=== PATIENT | female | born 1930 | race Asian ===

== ENCOUNTER 2017-06-23 22:49 | Inpatient (IN) | payer OTHER ==
[~2017-06-23] VITALS: Ht 162.6 cm; Wt 85.7 kg
[2017-06-23] MEDS ORDERED: TYLENOL EXTRA500 MG ORAL ×2 (22:51→22:59)
[2017-06-23] MEDS ORDERED: METOPROLOL TART25 MG ORAL (22:59)
[2017-06-23] MEDS ORDERED: DULCOLAX10 MG RC (22:59)
[2017-06-23] MEDS ORDERED: NORCO 5-325 TA1 EAC1 ORAL (22:59)
[2017-06-23] MEDS ORDERED: DOCUSATE SODIU100 MG ORAL (22:59)
[2017-06-23] MEDS ORDERED: FLEET ENEMA133 ML RECTAL (22:59)
[2017-06-23] MEDS ORDERED: GABAPENTIN300 MG ORAL (22:59)
[2017-06-23] MEDS ORDERED: DULERA 100 MCG/13 GM INH (22:59)
[2017-06-23] MEDS ORDERED: DIPHENHYDRAMINE25 M1 ORAL (22:59)
[2017-06-23] MEDS ORDERED: ALBUTEROL SULF8.5 GM INH (22:59)
[2017-06-23] MEDS ORDERED: Acetaminophen 500mg (ES) tab ORAL ONE (23:15)
[2017-06-23] MEDS ORDERED: cefTRIAXone 1 GM in NS 55 ML IVPB ONE (23:15)
[2017-06-23] MEDS ORDERED: Vancomycin 1.5gm/D5W 250ml 250 ML IVPB ONE (23:15)
[2017-06-23 23:23] LABS: BASOPHILS % (AUTO) 0.8 % (0.0-2.0); EOSINOPHILS % (AUTO) 3.4 % (0.0-3.0); LYMPHOCYTES % (AUTO) 25.8 % (20.0-45.0); MEAN CORPUSCULAR HEMOGLOBIN 27.1 PG (27.0-31.0); MEAN CORPUSCULAR HGB CONC 32.1 G/DL (32.0-36.0); MEAN CORPUSCULAR VOLUME 85 FL (80-99); MEAN PLATELET VOLUME 4.8 FL (6.5-10.1); MONOCYTES % (AUTO) 8.8 % (1.0-10.0); NEUTROPHILS % (AUTO) 61.1 % (45.0-75.0); PLATELET COUNT 381 K/UL (150-450); RED BLOOD COUNT 4.47 M/UL (4.20-5.40); WHITE BLOOD COUNT 8.2 K/UL (4.8-10.8)
[2017-06-23 23:32] LABS: ANION GAP 8 mmol/L (5-15); CALCIUM 9.2 MG/DL (8.5-10.1); CARBON DIOXIDE 27 MMOL/L (21-32); CHLORIDE 99 MMOL/L (98-107); CREATININE 0.7 MG/DL (0.55-1.30); POTASSIUM 4.5 MMOL/L (3.5-5.1); SODIUM 134 MMOL/L (136-145)
[2017-06-23 23:38] LABS: INR 0.9 (0.9-1.1); PROTHROMBIN TIME 9.8 SEC (9.30-11.50)
[2017-06-23 23:40] VITALS: BP 136/68
[2017-06-23 23:43] LABS: KETONES,URINE NEGATIVE (NEGATIVE); LEUKOCYTE ESTERASE ,URINE 3+ (NEGATIVE); NITRITE,URINE NEGATIVE (NEGATIVE); PH,URINE 6 (4.5-8.0); PROTEIN,URINE NEGATIVE (NEGATIVE); UROBILINOGEN,URINE 1 MG/DL (0.0-1.0)
[2017-06-23 23:44] LABS: ALANINE AMINOTRANSFERASE 19 U/L (12-78); ALBUMIN/GLOBULIN RATIO 0.4 (1.0-2.7); ASPARTATE AMINO TRANSFERASE 22 U/L (15-37); CKMB < 0.5 NG/ML (0.0-3.6); TOTAL PROTEIN 8.8 G/DL (6.4-8.2)
--- NOTE | 2017-06-23 23:44 | Emergency Room Report ---
History of Present Illness General Chief Complaint: Pain Source: Patient, Medical Record, EMS Present Illness HPI This is an 87-year-old [place] female coming [facility]. She presents with chief complaint of fever and right arm swelling and redness. Onset acutely today. Temperature at the jail., Was given. No trauma. No chest pain. No nausea vomiting or diarrhea. No urinary complaint. At baseline she is short of breath and on oxygen. Allergies: Coded Allergies: No Known Allergies (Unverified , 06/23/17) Patient History Past Medical History: see triage record, old chart reviewed Past Surgical History: other Pertinent Family History: none Social History: Denies: smoking Last Menstrual Period: none Now: No Immunizations: other Reviewed Nursing Documentation: PMH: Agreed, PSxH: Agreed Nursing Documentation-PMH Hx Hypertension: Yes Review of Systems Constitutional: Reports: fever Eye: Denies: eye pain, blurred vision ENT: Denies: ear pain, nose congestion, throat swelling Respiratory: Denies: cough, shortness of breath Cardiovascular: Denies: chest pain, palpitations Gastrointestinal: Denies: abdominal pain, diarrhea, nausea, vomiting Musculoskeletal: Reports: joint swelling, muscle stiffness, Denies: back pain, joint pain Skin: Denies: rash Neurological: Denies: headache, numbness Endocrine: Denies: increased thirst, increased urine Hematologic/Lymphatic: Denies: easy bruising All Other Systems: negative except mentioned in HPI Physical Exam Vital Signs Date Time Temp Pulse Resp B/P (MAP) Pulse Ox O2 Delivery O2 Flow Rate FiO2 06/23/17 22:36 98.8 90 22 169/90 98 Nasal Cannula 2.0 vitals with high blood pressure. Repeat rectal temperature is 100.5. Sp02 EP Interpretation: reviewed, normal, abnormal General Appearance: well appearing, alert, mild distress, obese Head: normocephalic, atraumatic Eyes: bilateral eye PERRL, bilateral eye EOMI ENT: hearing grossly normal, normal pharynx Neck: full range of motion, supple, no meningismus Respiratory: chest non-tender, rhonchi Cardiovascular #1: regular rate, rhythm, no murmur Gastrointestinal: normal bowel sounds, non tender, no mass, no organomegaly, no bruit, non-distended Musculoskeletal: back normal, normal range of motion, other - Right upper extremity with edema and erythema to the low bicep antecubital area. Sensation normal. Movement of the arm and elbow elicit pain. Neurologic: alert Psychiatric: mood/affect normal Skin: warm/dry Medical Decision Making Diagnostic Impression: Primary Impression: Sepsis Qualified Codes: A41.9 - Sepsis, unspecified organism Additional Impressions: Right arm cellulitis UTI (urinary tract infection) Qualified Codes: N30.00 - Acute cystitis without hematuria ER Course Patient presents with a cellulitis and sepsis. Antibiotic started. Also has a urinary tract infection. Ultrasound negative for DVT. She probably had a thrombophlebitis recent admission or hospitalization. No evidence of necrotizing fasciitis. Laboratory Tests Test 06/23/17 22:55 06/23/17 23:26 White Blood Count 8.2 K/UL (4.8-10.8) Red Blood Count 4.47 M/UL (4.20-5.40) Hemoglobin 12.1 G/DL (12.0-16.0) Hematocrit 37.8 % (37.0-47.0) Mean Corpuscular Volume 85 FL (80-99) Mean Corpuscular Hemoglobin 27.1 PG (27.0-31.0) Mean Corpuscular Hemoglobin Concent 32.1 G/DL (32.0-36.0) Red Cell Distribution Width 15.0 % (11.6-14.8) H Platelet Count 381 K/UL (150-450) Mean Platelet Volume 4.8 FL (6.5-10.1) L Neutrophils (%) (Auto) 61.1 % (45.0-75.0) Lymphocytes (%) (Auto) 25.8 % (20.0-45.0) Monocytes (%) (Auto) 8.8 % (1.0-10.0) Eosinophils (%) (Auto) 3.4 % (0.0-3.0) H Basophils (%) (Auto) 0.8 % (0.0-2.0) Prothrombin Time 9.8 SEC (9.30-11.50) Prothromb Time International Ratio 0.9 (0.9-1.1) Activated Partial Thromboplast Time 29 SEC (23-33) Sodium Level 134 MMOL/L (136-145) L Potassium Level 4.5 MMOL/L (3.5-5.1) Chloride Level 99 MMOL/L (98-107) Carbon Dioxide Level 27 MMOL/L (21-32) Anion Gap 8 mmol/L (5-15) Blood Urea Nitrogen 18 mg/dL (7-18) Creatinine 0.7 MG/DL (0.55-1.30) Estimat Glomerular Filtration Rate mL/min (>60) Glucose Level 135 MG/DL (74-106) H Lactic Acid Level 1.70 mmol/L (0.66-2.22) Calcium Level 9.2 MG/DL (8.5-10.1) Total Bilirubin 0.3 MG/DL (0.2-1.0) Aspartate Amino Transf (AST/SGOT) 22 U/L (15-37) Alanine Aminotransferase (ALT/SGPT) 19 U/L (12-78) Alkaline Phosphatase 149 U/L (46-116) H Total Creatine Kinase 19 U/L (26-308) L Creatine Kinase MB < 0.5 NG/ML (0.0-3.6) Creatine Kinase MB Relative Index 2.6 Troponin I 0.001 ng/mL (0.000-0.056) Total Protein 8.8 G/DL (6.4-8.2) H Albumin 2.5 G/DL (3.4-5.0) L Globulin 6.3 g/dL Albumin/Globulin Ratio 0.4 (1.0-2.7) L Urine Color Yellow Urine Appearance Cloudy Urine pH 6 (4.5-8.0) Urine Specific [place] 1.010 (1.005-1.035) Urine Protein Negative (NEGATIVE) Urine Glucose (UA) Negative (NEGATIVE) Urine Ketones Negative (NEGATIVE) Urine Occult Blood 3+ (NEGATIVE) H Urine Nitrite Negative (NEGATIVE) Urine Bilirubin Negative (NEGATIVE) Urine Urobilinogen 1 MG/DL (0.0-1.0) H Urine Leukocyte Esterase 3+ (NEGATIVE) H Urine RBC 5-10 /HPF (0 - 2) H Urine WBC 60-80 /HPF (0 - 2) H Urine Squamous Epithelial Cells Many /LPF (NONE/OCC) H Urine Bacteria Moderate /HPF (NONE) H Lab Results Impression labs unremarkable. EKG Diagnostic Results Rate: normal Rhythm: NSR ST Segments: no acute changes Rhythm Strip Diag. Results Rhythm Strip Time: 23:43 EP Interpretation: yes Rate: 85 Rhythm: NSR, no PVC's Chest X-Ray Diagnostic Results Chest X-Ray Diagnostic Results : Chest X-Ray Ordered: Yes # of Views/Limited/Complete: 1 View Indication: Shortness of Breath EP Interpretation: Yes Interpretation: no consolidation, no effusion, no pneumothorax, no acute cardiopulmonary disease, other - constrast in stomach Impression: No acute disease Electronically Signed by: Pancho Alvarado MD Last Vital Signs Date Time Temp Pulse Resp B/P (MAP) Pulse Ox O2 Delivery O2 Flow Rate FiO2 06/23/17 22:36 98.8 90 22 169/90 98 Nasal Cannula 2.0 Status: improved Disposition: ADMITTED INPATIENT Condition: Serious Referrals: NON PHYSICIAN (PCP) PANCHO ALVARADO M.D. Jun 23, 2017 23:44
[2017-06-23 23:52] LABS: APPEARANCE,URINE CLOUDY; BACTERIA,URINE MODERATE /HPF; SQUAMOUS EPITHELIAL CELL,UR MANY /LPF (NONE/OCC); WBC,URINE 60-80 /HPF (0 - 2)
[2017-06-24] VITALS (7 sets, daily range): BP systolic 134–161; BP diastolic 58–99
[2017-06-24] MEDS ORDERED: MOM30 ML ORAL (05:26)
[2017-06-24] MEDS ORDERED: DIOVAN80 MG ORAL (05:26)
[2017-06-24] MEDS ORDERED: VITAMIN C500 M1 ORAL (05:26)
[2017-06-24] MEDS ORDERED: Acetaminophen 500mg (ES) tab ORAL PRN (05:45)
[2017-06-24] MEDS ORDERED: Norco 5mg/325mg tab ORAL PRN (05:45)
[2017-06-24] MEDS ORDERED: Albuterol/Ipratropium 3ml neb HHN PRN (05:45)
[2017-06-24] MEDS: Sodium Chloride 500ML 550 ML IV SCH ×3 (06:08→16:00)
[2017-06-24] MEDS ORDERED: Cefepime 1gm vial ONE (06:27)
[2017-06-24] MEDS: Cefepime HCl 1 GM in D5W 55 ML IVPB SCH ×2 (06:30→17:14)
[2017-06-24] MEDS: Metoprolol Tartrate 12.5mg TAB ORAL SCH ×2 (08:21→20:53)
[2017-06-24] MEDS: Docusate 100mg cap ORAL SCH ×2 (08:21→08:38)
[2017-06-24] MEDS ORDERED: NS 500ML ONE (10:55)
[2017-06-24] MEDS ORDERED: Tubing IV Secondary IV ONE (10:55)
--- NOTE | 2017-06-24 13:48 | Wound Care Consultation ---
Wound Assessment Wound Assessment : Wound Number: 1 Wound Present on Admission: Yes New Wound: No Status Change of Wound: No Wound Location Body Site Modif: left, right, lower Wound Location Body Site: leg - hemosiderin staining Wound Type: other - hemosiderin staining Prabhu Test: Does not Prabhu Percent of Wound Black/Brown: 100 Wound Drainage Amount: None Wound Drainage Odor: None/Absent Tissue Surrounding Wound: Intact Wound General Appearance: Asymptomatic Wound Comment #1 Hemosiderin staining on both lower legs Recommendation -Apply A&D ointment on both feet -Optimize nutrition -Low air loss SPR mattress -Heel protector on both heels -Offload both heels -Keep clean and dry -Turn and reposition -Assess and f/u accordingly for any changes SHO PINEDA RN Jun 24, 2017 13:48
--- NOTE | 2017-06-24 14:27 | Diagnostic Imaging Report ---
Indication: Shortness of breath Technique: One view of the chest Comparison: none Findings: Lungs and pleural spaces are clear. Heart size is borderline enlarged. Aorta is tortuous and calcified. There is evidence of prior upper lumbar vertebral augmentation procedure. Impression: No acute process
[2017-06-24] MEDS: Albuterol/Ipratropium 3ml neb HHN SCH (20:45)
[2017-06-24] MEDS: Heparin 5000 units/ml inj SUBQ SCH (20:54)
[2017-06-25] VITALS: BP 146/68
[2017-06-25] MEDS: Albuterol/Ipratropium 3ml neb HHN SCH ×7 (00:04→23:28)
[2017-06-25] MEDS: Vancomycin 1250mg/D5W 250ml IVPB SCH (00:22)
--- NOTE | 2017-06-25 01:15 | History and Physical Report ---
DATE OF ADMISSION: 06/24/2017 REASON FOR ADMISSION: Right upper extremity cellulitis. HISTORY OF PRESENT ILLNESS: This is an 87-year-old female, who is nonweightbearing and [facility] in a [facility]. She has chronic right upper extremity swelling according to records, but developed warmth and discoloration of the limb prompting her to be sent to the emergency room. A venous duplex scan was negative for DVT, but the concern over cellulitis has prompted this hospitalization. PAST MEDICAL HISTORY: Includes history of ARDS, history of congestive heart failure, bronchospastic lung disease, hypertension, nonweightbearing status, rheumatoid arthritis, status post kyphoplasty, and peripheral neuropathy. ALLERGIES: None known. FAMILY HISTORY: Noncontributory. SOCIAL HISTORY: No record of smoking, alcohol, or substance abuse. REVIEW OF SYSTEMS: Could not be obtained per the patient. PHYSICAL EXAMINATION: GENERAL: She is alert, but minimally verbal. HEENT: Oropharynx is clear. NECK: Supple and obese. LUNGS: Diminished breath sounds. Few wheezes. CARDIAC: Regular rhythm and rate. Normal S1 and S2. No murmur. ABDOMEN: Obese and soft. EXTREMITIES: Notable for significant contractures of the extremities. Right upper extremity has warmth, 2+ edema, and hyperemia. LABORATORY DATA: Reviewed. IMPRESSION: 1. Right upper extremity cellulitis. 2. Immobility. 3. Rheumatoid arthritis. 4. Moderate protein-calorie malnutrition. 5. History of congestive heart failure. 6. Paroxysmal bronchospasm. PLAN: 1. Empiric antibiotics. 2. Skin care. 3. Inhaled bronchodilators. 4. Monitor volume status and cardiorenal parameters. 5. Continue baseline cardiovascular regimen. 6. DVT prophylaxis. Adam Cifuentes M.D. DR: ENDER JOB#: [id number] CC:
[2017-06-25 04:00] VITALS: BP 126/79
[2017-06-25] MEDS: Cefepime HCl 1 GM in D5W 55 ML IVPB SCH ×2 (05:54→18:08)
[2017-06-25 08:00] VITALS: BP 134/74
[2017-06-25] MEDS: Metoprolol Tartrate 12.5mg TAB ORAL SCH ×2 (08:18→21:15)
[2017-06-25] MEDS: Docusate 100mg cap ORAL SCH (08:18)
[2017-06-25] MEDS: Heparin 5000 units/ml inj SUBQ SCH ×2 (08:28→21:00)
[2017-06-25 12:20] VITALS: BP 130/58
[2017-06-25] MEDS ORDERED: NS 500ML ONE (15:55)
[2017-06-25] MEDS ORDERED: Tubing IV Secondary IV ONE (15:55)
[2017-06-25 16:00] VITALS: BP 123/62
[2017-06-25 20:21] VITALS: BP 113/63
[2017-06-26] MEDS: Vancomycin 1250mg/D5W 250ml IVPB SCH (00:16)
[2017-06-26 00:31] VITALS: BP 123/53
--- NOTE | 2017-06-26 01:45 | Progress Note ---
DATE: 06/25/2017 INTERNAL MEDICINE PROGRESS NOTE SUBJECTIVE: The patient without new complaints. She continues on IV antibiotics. She has no distress. OBJECTIVE: VITAL SIGNS: Blood pressure 130/58, pulse 75, respirations 20, and afebrile. Monitored rhythm sinus. LUNGS: Diminished breath sounds. No wheezing. HEART: Regular rhythm and rate. Normal S1 and S2. ABDOMEN: Soft. EXTREMITIES: No edema. The right upper extremity remains erythematous, warm, and edematous. LABORATORY AND DIAGNOSTIC DATA: Blood culture one out of two bottles has gram-positive cocci. IMPRESSION: 1. Cellulitis, right upper extremity. 2. Dependent edema. 3. Rheumatoid arthritis. 4. Immobility. 5. Possible bacteremia versus contaminant. PLAN: 1. Continue IV antibiotics. 2. Skin care. 3. Assistance with all ADLs including nutrition. 4. DVT prophylaxis. 5. Infectious Diseases consultation. Adam Cifuentes M.D. DR: Stew JOB#: [id number] CC:
[2017-06-26] MEDS: Albuterol/Ipratropium 3ml neb HHN SCH ×6 (03:37→23:27)
[2017-06-26 04:00] VITALS: BP 117/60
[2017-06-26] MEDS: Cefepime HCl 1 GM in D5W 55 ML IVPB SCH ×2 (05:49→18:06)
[2017-06-26 07:33] LABS: BASOPHILS % (AUTO) 0.7 % (0.0-2.0); EOSINOPHILS % (AUTO) 7.6 % (0.0-3.0); LYMPHOCYTES % (AUTO) 14.3 % (20.0-45.0); MEAN CORPUSCULAR HGB CONC 31.3 G/DL (32.0-36.0); MEAN CORPUSCULAR VOLUME 87 FL (80-99); MEAN PLATELET VOLUME 4.9 FL (6.5-10.1); MONOCYTES % (AUTO) 9.6 % (1.0-10.0); NEUTROPHILS % (AUTO) 67.9 % (45.0-75.0); PLATELET COUNT 307 K/UL (150-450); RED BLOOD COUNT 3.79 M/UL (4.20-5.40); RED CELL DISTRIBUTION WIDTH 14.9 % (11.6-14.8); WHITE BLOOD COUNT 7.4 K/UL (4.8-10.8)
[2017-06-26 08:10] LABS: ALANINE AMINOTRANSFERASE 17 U/L (12-78); ALBUMIN/GLOBULIN RATIO 0.4 (1.0-2.7); ANION GAP 4 mmol/L (5-15); ASPARTATE AMINO TRANSFERASE 16 U/L (15-37); CALCIUM 8.9 MG/DL (8.5-10.1); CARBON DIOXIDE 28 MMOL/L (21-32); CHLORIDE 101 MMOL/L (98-107); CREATININE 0.7 MG/DL (0.55-1.30); MAGNESIUM 2.1 MG/DL (1.8-2.4); POTASSIUM 4.2 MMOL/L (3.5-5.1); SODIUM 133 MMOL/L (136-145); TOTAL PROTEIN 7.5 G/DL (6.4-8.2)
[2017-06-26 08:13] VITALS: BP 123/52
[2017-06-26] MEDS: Metoprolol Tartrate 12.5mg TAB ORAL SCH ×2 (08:50→22:51)
[2017-06-26] MEDS: Docusate 100mg cap ORAL SCH ×2 (08:51→09:12)
[2017-06-26] MEDS: Heparin 5000 units/ml inj SUBQ SCH ×2 (08:57→22:53)
[2017-06-26 11:58] VITALS: BP 131/63
[2017-06-26 15:45] VITALS: BP 119/57
[2017-06-26 20:00] VITALS: BP 115/72
--- NOTE | 2017-06-26 20:15 | Consultation ---
DATE OF CONSULTATION: 06/26/2017 INFECTIOUS DISEASES CONSULTATION CONSULTING PHYSICIAN: Misty Dias M.D. REFERRING PHYSICIAN: Adam Cifuentes M.D. REASON FOR CONSULTATION: Right arm cellulitis. HISTORY OF PRESENTING ILLNESS: This is an 87-year-old lady with history of congestive heart failure, ARDS, hypertension, rheumatoid arthritis, who came in with right arm swelling and redness. Duplex scan was negative for DVT and an Infectious Diseases consultation has been obtained for antibiotics. PAST MEDICAL HISTORY: 1. History of ARDS. 2. Congestive heart failure. 3. Hypertension. 4. Bronchospastic lung disease. 5. Rheumatoid arthritis. 6. Status post kyphoplasty. 7. Neuropathy. MEDICATIONS: As an inpatient, she is on Avapro, IV vancomycin, subcutaneous heparin, albuterol, metoprolol, docusate, gabapentin, Cefepime, Tylenol, [place]. ALLERGIES: No known drug allergies. SOCIAL HISTORY: No history of smoking, alcohol, or drug use. FAMILY HISTORY: Unknown. REVIEW OF SYSTEMS: Unable to obtain currently. PHYSICAL EXAMINATION: VITAL SIGNS: Temperature of 97.3 degrees, T-max of 97.9 degrees, pulse of 75, respiratory of 18, blood pressure 131/63, O2 saturation of 100%. HEENT: Pupils equally reactive to light and accommodation. Mouth appears clean without thrush. NECK: Supple. No adenopathy. No JVD. CARDIOVASCULAR: Regular rate and rhythm. No murmurs. LUNGS: Clear to auscultation bilaterally. No crackles. No wheezes. ABDOMEN: Soft and nontender. No organomegaly. EXTREMITIES: No cyanosis. No clubbing. Right arm edema and erythema noted with swelling. LABORATORY AND DIAGNOSTIC DATA: White count 7.4, hemoglobin 10.3, hematocrit 32.8, MCV 87, platelet count of 307, neutrophils of 67%. Sodium 133, potassium 4.2, chloride 101, bicarbonate 28, BUN 14, creatinine 0.7, glucose 111, calcium 8.9. Total bilirubin 0.3, AST 16, ALT 10, alkaline phosphatase 122. Beta-natriuretic peptide 188. Total protein 7.5 and albumin 2.1. UA is showing 60 to 80 white cells. Urine culture showing mixed gram-positive organisms. On 06/23/2017, blood culture growing coagulase-negative Staph. On 06/23/2017, nasal swab was negative for MRSA. On 06/23/2017, rectal swab was negative for VRE. Chest x-ray is showing no acute process. ASSESSMENT: 1. This is an 87-year-old lady with history of acute respiratory distress syndrome, congestive heart failure, who comes in with right arm cellulitis. 2. Urinary tract infection. 3. Hypertension. 4. Positive blood cultures with coagulase-negative Staphylococcus is likely a contaminant. PLAN: 1. Continue IV vancomycin and cefepime for now. 2. We will follow up cultures and adjust antibiotics accordingly. I would like to thank, Dr. Cifuentes, for this consultation. Misty Dias M.D. DR: Eric JOB#: [id number] CC: Adam Cifuentes M.D.
[2017-06-27] VITALS: BP 102/56
[2017-06-27] MEDS: Vancomycin 1250mg/D5W 250ml IVPB SCH
[2017-06-27] MEDS ORDERED: Vancomycin 1750mg/D5W 300ml IVPB SCH ×2 (01:00)
[2017-06-27] MEDS ORDERED: Vancomycin 1.5 GM/D5W 250ML IVPB SCH (02:00)
[2017-06-27] MEDS: Albuterol/Ipratropium 3ml neb HHN SCH ×5 (03:16→19:19)
[2017-06-27 04:00] VITALS: BP 119/59
[2017-06-27] MEDS: Cefepime HCl 1 GM in D5W 55 ML IVPB SCH ×2 (05:20→18:21)
--- NOTE | 2017-06-27 06:15 | Progress Note ---
DATE: 06/26/2017 CARDIOLOGY PROGRESS NOTE SUBJECTIVE: The patient has continued swelling and pain of the right upper extremity. No nausea or vomiting. No shortness of breath. OBJECTIVE: VITAL SIGNS: Afebrile. Blood pressure 131/63, pulse 75, and respirations 18. LUNGS: Clear. CARDIAC: Regular. No new murmur. EXTREMITIES: Right upper extremity edema and erythema noted with minimal improvement. LABORATORY DATA: Reviewed. Blood cultures with coag-negative staph, likely a contaminant. IMPRESSION: 1. Cellulitis. 2. Urinary tract infection. 3. Rheumatoid arthritis with immobility. 4. Hypertension. PLAN: 1. Continue antibiotics. 2. Skin care. 3. Follow up final cultures. 4. Pain control. Adam Cifuentes M.D. DR: HAI JOB#: [id number] CC:
[2017-06-27 08:00] VITALS: BP 118/61
[2017-06-27] MEDS: Metoprolol Tartrate 12.5mg TAB ORAL SCH ×2 (08:13→21:18)
[2017-06-27] MEDS: Heparin 5000 units/ml inj SUBQ SCH ×2 (08:21→21:31)
--- NOTE | 2017-06-27 10:56 | Infectious Diseases Prog Note ---
Assessment/Plan Assessment/Plan antibiotics : vancomycin iv, cefepime A 1. right arm cellulitis. 2. Urinary tract infection. 3. Hypertension. 4. Positive blood cultures with coagulase-negative Staphylococcus is likely a contaminant. P 1. Continue IV vancomycin and cefepime for now. 2. We will follow up cultures and adjust antibiotics accordingly. Subjective ROS Limited/Unobtainable: Yes Allergies: Coded Allergies: No Known Allergies (Unverified , 06/23/17) Objective Vital Signs Last 24 Hour Vital Signs Date Time Temp Pulse Resp B/P (MAP) Pulse Ox O2 Delivery O2 Flow Rate FiO2 06/27/17 08:13 118/61 06/27/17 08:13 77 118/61 06/27/17 08:00 76 06/27/17 08:00 98.4 77 21 118/61 97 06/27/17 07:40 76 20 98 Nasal Cannula 28 06/27/17 07:35 28 06/27/17 07:35 Nasal Cannula 2.0 28 06/27/17 07:35 96 Nasal Cannula 28 06/27/17 07:33 72 18 96 Nasal Cannula 28 06/27/17 04:00 99.2 75 18 119/59 97 Room Air 06/27/17 03:44 78 06/27/17 03:18 71 20 96 Nasal Cannula 2.0 28 06/27/17 03:17 28 06/27/17 03:17 69 20 96 Room Air 2.0 28 06/27/17 00:00 98.8 68 20 102/56 96 Nasal Cannula 2.0 06/26/17 23:38 73 06/26/17 23:29 70 20 97 Room Air 21 06/26/17 23:29 21 06/26/17 23:28 69 20 96 Room Air 21 06/26/17 22:51 68 119/57 06/26/17 20:00 98.6 80 20 115/72 95 06/26/17 20:00 98.6 80 18 115/72 95 Nasal Cannula 2.0 06/26/17 19:56 84 06/26/17 18:57 68 20 96 Room Air 1.0 06/26/17 18:56 21 06/26/17 18:55 94 Room Air 21 06/26/17 18:54 Room Air 06/26/17 18:52 66 20 94 Room Air 21 06/26/17 16:15 73 18 98 Nasal Cannula 1.0 24 06/26/17 16:04 72 18 98 Nasal Cannula 1.0 24 06/26/17 16:00 65 06/26/17 15:45 98.4 68 18 119/57 96 06/26/17 12:00 75 06/26/17 11:58 97.3 75 18 131/63 100 06/26/17 10:57 73 18 99 Nasal Cannula 1.0 24 Height (Feet): 5 Height (Inches): 4.00 Weight (Pounds): 189 Respiratory/Chest: lungs clear Cardiovascular: normal rate, regular rhythm, no gallop/murmur Abdomen: soft, non tender Extremities: other - right arm erythema, edema Laboratory Tests Test 06/26/17 23:45 Vancomycin Level Trough 7.8 ug/mL (5.0-12.0) RUDOLPH GARCIA Jun 27, 2017 10:56
[2017-06-27 12:00] VITALS: BP 112/52
[2017-06-27 16:00] VITALS: BP 124/61
[2017-06-27] MEDS ORDERED: Vancomycin 750mg/NS 250ml IVPB SCH (18:00)
[2017-06-27 20:23] VITALS: BP 105/59
[2017-06-27] MEDS: Vancomycin 750mg/NS 250ml IVPB SCH (21:19)
[2017-06-27 22:12] LABS: APPEARANCE,URINE CLEAR; KETONES,URINE NEGATIVE (NEGATIVE); LEUKOCYTE ESTERASE ,URINE NEGATIVE (NEGATIVE); NITRITE,URINE NEGATIVE (NEGATIVE); PH,URINE 7 (4.5-8.0); PROTEIN,URINE NEGATIVE (NEGATIVE); UROBILINOGEN,URINE NORMAL MG/DL (0.0-1.0)
[2017-06-27 22:18] LABS: BACTERIA,URINE OCCASIONAL /HPF; RBC,URINE 0-2 /HPF (0 - 2); SQUAMOUS EPITHELIAL CELL,UR OCCASIONAL /LPF (NONE/OCC); WBC,URINE 0-2 /HPF (0 - 2)
[2017-06-28] MEDS: Albuterol/Ipratropium 3ml neb HHN SCH ×6 (00:03→19:38)
[2017-06-28 00:37] VITALS: BP 135/66
[2017-06-28] MEDS: Solu-MEDROL 40mg Inj IVP SCH ×3 (01:31→20:58)
[2017-06-28 04:24] VITALS: BP 132/58
[2017-06-28] MEDS: Cefepime HCl 1 GM in D5W 55 ML IVPB SCH ×2 (05:52→17:41)
[2017-06-28 08:00] VITALS: BP 129/70
[2017-06-28] MEDS: Docusate 100mg cap ORAL SCH (08:37)
[2017-06-28] MEDS: Metoprolol Tartrate 12.5mg TAB ORAL SCH ×2 (08:40→20:58)
[2017-06-28] MEDS: Heparin 5000 units/ml inj SUBQ SCH ×2 (08:41→21:01)
--- NOTE | 2017-06-28 09:21 | Infectious Diseases Prog Note ---
Assessment/Plan Assessment/Plan A 1. right arm cellulitis. 2. Urinary tract infection. 3. Hypertension. 4. Positive blood cultures with coagulase-negative Staphylococcus is likely a contaminant. P 1. Continue IV vancomycin and cefepime for now. 2. We will follow up cultures and adjust antibiotics accordingly. Subjective ROS Limited/Unobtainable: No Constitutional: Reports: no symptoms Respiratory: Reports: no symptoms Gastrointestinal/Abdominal: Reports: no symptoms Allergies: Coded Allergies: No Known Allergies (Unverified , 06/23/17) Objective Vital Signs Last 24 Hour Vital Signs Date Time Temp Pulse Resp B/P (MAP) Pulse Ox O2 Delivery O2 Flow Rate FiO2 06/28/17 08:40 129/70 06/28/17 08:40 70 129/70 06/28/17 08:00 97.8 70 21 129/70 95 06/28/17 07:34 72 16 99 Nasal Cannula 2.0 28 06/28/17 07:27 Nasal Cannula 2.0 28 06/28/17 07:26 96 Nasal Cannula 2.0 28 06/28/17 07:26 77 18 96 Nasal Cannula 2.0 28 06/28/17 04:24 96.2 67 18 132/58 98 Nasal Cannula 06/28/17 04:00 Nasal Cannula 2.0 06/28/17 04:00 67 06/28/17 03:46 67 20 98 Nasal Cannula 2.0 28 06/28/17 03:36 68 20 98 Nasal Cannula 2.0 28 06/28/17 00:37 97.9 71 18 135/66 96 Nasal Cannula 06/28/17 00:12 79 20 99 Nasal Cannula 2.0 28 06/28/17 00:02 77 22 96 Nasal Cannula 2.0 28 06/28/17 00:00 73 06/28/17 00:00 Nasal Cannula 2.0 06/27/17 21:18 80 105/59 06/27/17 20:23 98.2 80 18 105/59 96 Nasal Cannula 06/27/17 20:00 84 06/27/17 20:00 Nasal Cannula 2.0 06/27/17 19:35 81 20 98 Nasal Cannula 2.0 28 06/27/17 19:19 78 22 97 Nasal Cannula 2.0 28 06/27/17 19:19 Nasal Cannula 2.0 28 06/27/17 19:19 97 Nasal Cannula 2.0 28 06/27/17 16:00 98.5 86 22 124/61 98 06/27/17 16:00 82 06/27/17 15:05 79 20 100 Nasal Cannula 2.0 28 06/27/17 14:56 77 18 98 Nasal Cannula 2.0 28 06/27/17 12:00 79 06/27/17 12:00 98.4 81 22 112/52 96 06/27/17 11:05 62 20 99 Nasal Cannula 28 06/27/17 10:58 75 20 94 Nasal Cannula 2.0 28 Height (Feet): 5 Height (Inches): 4.00 Weight (Pounds): 189 General Appearance: no acute distress HEENT: mucous membranes moist Respiratory/Chest: chest wall non-tender Cardiovascular: normal rate Abdomen: soft, non tender Extremities: other - edema of right arm, finger deformity in right hand Neurologic/Psychiatric: alert, responsive Laboratory Tests Test 06/27/17 22:00 Urine Color Pale yellow Urine Appearance Clear Urine pH 7 (4.5-8.0) Urine Specific [place] 1.005 (1.005-1.035) Urine Protein Negative (NEGATIVE) Urine Glucose (UA) Negative (NEGATIVE) Urine Ketones Negative (NEGATIVE) Urine Occult Blood 1+ (NEGATIVE) H Urine Nitrite Negative (NEGATIVE) Urine Bilirubin Negative (NEGATIVE) Urine Urobilinogen Normal MG/DL (0.0-1.0) Urine Leukocyte Esterase Negative (NEGATIVE) Urine RBC 0-2 /HPF (0 - 2) Urine WBC 0-2 /HPF (0 - 2) Urine Squamous Epithelial Cells Occasional /LPF Urine Bacteria Occasional /HPF (NONE) Current Medications Medications (Trade) Dose Ordered Sig/Sole Route PRN Reason Start Time Stop Time Status Last Admin Dose Admin Acetaminophen (Tylenol) 500 mg Q4H PRN ORAL Mild Pain/Temp > 100.5 06/24/17 05:45 07/24/17 05:44 06/25/17 16:06 Acetaminophen/ Hydrocodone Bitart ([place] 5/325) 1 tab Q4H PRN ORAL Moderate Pain (Pain Scale 4-6) 06/24/17 05:45 07/01/17 05:44 Albuterol/ Ipratropium (Albuterol/ Ipratropium) 3 ml Q4HRT HHN 06/24/17 19:00 06/29/17 18:59 06/28/17 07:25 Cefepime HCl 1 gm/ Dextrose 55 ml @ 110 mls/hr Q12H IVPB 06/24/17 06:00 07/01/17 05:59 06/28/17 05:52 Dextrose (Dextrose 50%) STAT PRN IV Hypoglycemia 06/24/17 05:45 07/24/17 05:44 Docusate Sodium (Colace) 100 mg DAILY ORAL 06/24/17 09:00 07/24/17 08:59 06/28/17 08:37 Gabapentin (Neurontin) 300 mg TID@0900,1500,2100 ORAL 06/24/17 09:00 07/24/17 08:59 06/28/17 08:36 Heparin Sodium (Porcine) (Heparin 5000 units/ml) 5,000 units EVERY 12 HOURS SUBQ 06/24/17 21:00 07/24/17 20:59 06/28/17 08:41 Irbesartan (Avapro) 150 mg DAILY ORAL 06/25/17 09:00 07/25/17 08:59 06/28/17 08:40 Methylprednisolone Sodium Succinate (Solu-MEDROL) 40 mg EVERY 12 HOURS IVP 06/28/17 00:45 07/28/17 00:44 06/28/17 08:36 Metoprolol Tartrate (Lopressor) 12.5 mg EVERY 12 HOURS ORAL 06/24/17 09:00 07/24/17 08:59 06/28/17 08:40 Vancomycin HCl (Vanco rx to dose) 1 ea DAILY PRN MISC Per rx protocol 06/24/17 05:45 07/24/17 05:44 Vancomycin/Sodium Chloride 250 ml @ 166.667 mls/hr Q12HR@0900,2100 IVPB 06/27/17 21:00 07/02/17 20:59 06/27/17 21:19 KODAK ANGELES Jun 28, 2017 09:21
[2017-06-28] MEDS: Vancomycin 750mg/NS 250ml IVPB SCH (10:16)
--- NOTE | 2017-06-28 10:21 | Diagnostic Imaging Report ---
Indication: SOB Technique: XRAY CHEST 1 V. Comparison: 06/23/2017 Findings: The cardiomediastinal silhouette is stable. There are no acute infiltrates. Impression: No acute abnormality. .
[2017-06-28 12:00] VITALS: BP 133/62
[2017-06-28 16:00] VITALS: BP 132/66
[2017-06-28 20:23] VITALS: BP 118/50
[2017-06-28] MEDS: Vancomycin 1250mg/D5W 250ml IVPB SCH (22:58)
--- NOTE | 2017-06-29 00:01 | Progress Note ---
DATE: 06/27/2017 INTERNAL MEDICINE PROGRESS NOTE SUBJECTIVE: The patient is wheezing. No chest pain. No shortness of breath. Oxygen saturation is adequate. No complaints of pain. OBJECTIVE: VITAL SIGNS: Blood pressure 105/59, pulse 80, and respirations 18. No fevers. NECK: Supple and obese. LUNGS: Diminished breath sounds and expiratory wheezes. CARDIAC: Regular. Normal S1 and S2. ABDOMEN: Soft. EXTREMITIES: Right upper extremity with slightly less edema and erythema. IMPRESSION: 1. Acute bronchospasm. 2. Right upper extremity cellulitis. 3. Rheumatoid arthritis. PLAN: 1. Intravenous steroids. 2. Check chest x-ray. 3. Inhaled bronchodilators. 4. Continue antimicrobials and skin care. Adam Cifunetes M.D. DR: ENDER JOB#: [id number] CC:
[2017-06-29 00:31] VITALS: BP 137/69
--- NOTE | 2017-06-29 00:46 | Progress Note ---
DATE: 06/28/2017 INTERNAL MEDICINE PROGRESS NOTE SUBJECTIVE: The patient has less congestion and wheezing. She is on IV steroids. Right upper extremity swelling and redness continues to improve. OBJECTIVE: VITAL SIGNS: Vitals are stable. Oxygen saturation is 96% on 2 liters. LABORATORY AND DIAGNOSTIC DATA: Chest x-ray today revealed no acute process. Labs are pending. ASSESSMENT AND PLAN: We will taper steroids as respiratory parameters improved. Continue skin care and IV antibiotics for upper extremity cellulitis. Followup laboratories and finalize care plan for return to longterm facility over the next 24 hours. Adam Cifuentes M.D. DR: Ortiz JOB#: [id number] CC:
[2017-06-29] MEDS: Albuterol/Ipratropium 3ml neb HHN SCH ×4 (01:39→11:00)
[2017-06-29 04:15] VITALS: BP 122/60
[2017-06-29] MEDS: Cefepime HCl 1 GM in D5W 55 ML IVPB SCH (06:14)
[2017-06-29 07:28] LABS: MEAN CORPUSCULAR HEMOGLOBIN 27.8 PG (27.0-31.0); MEAN CORPUSCULAR HGB CONC 32.5 G/DL (32.0-36.0); MEAN CORPUSCULAR VOLUME 86 FL (80-99); MEAN PLATELET VOLUME 4.6 FL (6.5-10.1); PLATELET COUNT 357 K/UL (150-450); RED BLOOD COUNT 3.83 M/UL (4.20-5.40); RED CELL DISTRIBUTION WIDTH 15.1 % (11.6-14.8); WHITE BLOOD COUNT 8.3 K/UL (4.8-10.8)
[2017-06-29 08:22] LABS: ALANINE AMINOTRANSFERASE 14 U/L (12-78); ALBUMIN/GLOBULIN RATIO 0.4 (1.0-2.7); ANION GAP 4 mmol/L (5-15); ASPARTATE AMINO TRANSFERASE 17 U/L (15-37); CALCIUM 8.6 MG/DL (8.5-10.1); CARBON DIOXIDE 27 MMOL/L (21-32); CHLORIDE 103 MMOL/L (98-107); CREATININE 0.8 MG/DL (0.55-1.30); SODIUM 134 MMOL/L (136-145); TOTAL PROTEIN 8.1 G/DL (6.4-8.2)
[2017-06-29] MEDS: Metoprolol Tartrate 12.5mg TAB ORAL SCH (08:25)
[2017-06-29] MEDS: Docusate 100mg cap ORAL SCH (08:26)
[2017-06-29] MEDS: Heparin 5000 units/ml inj SUBQ SCH (08:28)
[2017-06-29 08:44] VITALS: BP 126/71
[2017-06-29 08:45] LABS: ANISOCYTOSIS 1+; BAND NEUTROPHILS % (MANUAL) 0 % (0-8); BASOPHILS % (MANUAL) 0 % (0-2); EOSINOPHILS % (MANUAL) 0 % (0-3); LYMPHOCYTES % (MANUAL) 9 % (20-45); NEUTROPHILS % (MANUAL) 88 % (45-75); PLATELET ESTIMATE ADEQUATE; PLATELET MORPHOLOGY NORMAL; TOTAL CELLS COUNTED 100
[2017-06-29] MEDS ORDERED: Solu-MEDROL 40mg Inj IVP SCH (09:00)
[2017-06-29] MEDS: Vancomycin 1250mg/D5W 250ml IVPB SCH (10:37)
[2017-06-29 11:45] VITALS: BP 128/90
[2017-06-29] MEDS ORDERED: Bactrim DS (160mg/800mg) tab ORAL SCH (12:00)
--- NOTE | 2017-06-29 12:25 | Infectious Diseases Prog Note ---
Assessment/Plan Assessment/Plan A 1. right arm cellulitis. 2. Urinary tract infection. 3. Hypertension. 4. Positive blood cultures with coagulase-negative Staphylococcus is likely a contaminant. P 1. Continue IV vancomycin and cefepime for now. 2. We will follow up cultures and adjust antibiotics accordingly. Subjective ROS Limited/Unobtainable: No HEENT: Reports: no symptoms Respiratory: Reports: no symptoms Cardiovascular: Reports: no symptoms Gastrointestinal/Abdominal: Reports: no symptoms Allergies: Coded Allergies: No Known Allergies (Unverified , 06/23/17) Objective Vital Signs Last 24 Hour Vital Signs Date Time Temp Pulse Resp B/P (MAP) Pulse Ox O2 Delivery O2 Flow Rate FiO2 06/29/17 11:45 98.1 76 20 128/90 95 06/29/17 09:07 76 18 98 Nasal Cannula 1.0 24 06/29/17 08:57 76 20 98 Nasal Cannula 2.0 28 06/29/17 08:57 99 Nasal Cannula 2.0 28 06/29/17 08:57 Nasal Cannula 2.0 28 06/29/17 08:44 98.1 76 20 126/71 95 06/29/17 08:26 126/71 06/29/17 08:25 76 126/71 06/29/17 08:00 80 06/29/17 04:15 97.3 76 19 122/60 96 Nasal Cannula 06/29/17 04:08 81 18 98 Nasal Cannula 1.0 24 06/29/17 04:00 70 06/29/17 04:00 Nasal Cannula 2.0 06/29/17 03:53 81 20 98 Nasal Cannula 2.0 06/29/17 00:31 96.5 74 18 137/69 97 Nasal Cannula 06/29/17 00:10 74 18 98 Nasal Cannula 1.0 24 06/29/17 00:00 Nasal Cannula 2.0 06/29/17 00:00 72 06/29/17 00:00 75 20 98 Nasal Cannula 2.0 28 06/28/17 20:58 78 118/50 06/28/17 20:23 97.7 18 118/50 94 Nasal Cannula 06/28/17 20:00 Nasal Cannula 2.0 06/28/17 20:00 71 06/28/17 19:49 78 18 98 Nasal Cannula 1.0 24 06/28/17 19:39 Nasal Cannula 2.0 28 06/28/17 19:39 77 20 98 Nasal Cannula 1.0 24 06/28/17 19:39 98 Nasal Cannula 2.0 28 06/28/17 16:00 97.8 89 21 132/66 95 06/28/17 16:00 89 06/28/17 15:22 73 18 98 Nasal Cannula 1.0 24 06/28/17 15:14 78 20 95 Nasal Cannula 1.0 24 Height (Feet): 5 Height (Inches): 4.00 Weight (Pounds): 189 HEENT: mucous membranes moist Respiratory/Chest: lungs clear Cardiovascular: normal rate Abdomen: soft, non tender Extremities: other - edema of legs & right arm Neurologic/Psychiatric: alert, responsive Laboratory Tests Test 06/28/17 19:50 06/29/17 07:05 Vancomycin Level Trough 8.3 ug/mL (5.0-12.0) White Blood Count 8.3 K/UL (4.8-10.8) Red Blood Count 3.83 M/UL (4.20-5.40) L Hemoglobin 10.6 G/DL (12.0-16.0) L Hematocrit 32.7 % (37.0-47.0) L Mean Corpuscular Volume 86 FL (80-99) Mean Corpuscular Hemoglobin 27.8 PG (27.0-31.0) Mean Corpuscular Hemoglobin Concent 32.5 G/DL (32.0-36.0) Red Cell Distribution Width 15.1 % (11.6-14.8) H Platelet Count 357 K/UL (150-450) Mean Platelet Volume 4.6 FL (6.5-10.1) L Neutrophils (%) (Auto) % (45.0-75.0) Lymphocytes (%) (Auto) % (20.0-45.0) Monocytes (%) (Auto) % (1.0-10.0) Eosinophils (%) (Auto) % (0.0-3.0) Basophils (%) (Auto) % (0.0-2.0) Differential Total Cells Counted 100 Neutrophils % (Manual) 88 % (45-75) H Lymphocytes % (Manual) 9 % (20-45) L Monocytes % (Manual) 3 % (1-10) Eosinophils % (Manual) 0 % (0-3) Basophils % (Manual) 0 % (0-2) Band Neutrophils 0 % (0-8) Platelet Estimate Adequate Platelet Morphology Normal Anisocytosis 1+ Sodium Level 134 MMOL/L (136-145) L Potassium Level 4.0 MMOL/L (3.5-5.1) Chloride Level 103 MMOL/L (98-107) Carbon Dioxide Level 27 MMOL/L (21-32) Anion Gap 4 mmol/L (5-15) L Blood Urea Nitrogen 15 mg/dL (7-18) Creatinine 0.8 MG/DL (0.55-1.30) Estimat Glomerular Filtration Rate mL/min (>60) Glucose Level 157 MG/DL (74-106) H Calcium Level 8.6 MG/DL (8.5-10.1) Total Bilirubin 0.2 MG/DL (0.2-1.0) Aspartate Amino Transf (AST/SGOT) 17 U/L (15-37) Alanine Aminotransferase (ALT/SGPT) 14 U/L (12-78) Alkaline Phosphatase 113 U/L (46-116) Pro-B-Type Natriuretic Peptide 641 pg/mL (0-125) H Total Protein 8.1 G/DL (6.4-8.2) Albumin 2.3 G/DL (3.4-5.0) L Globulin 5.8 g/dL Albumin/Globulin Ratio 0.4 (1.0-2.7) L Current Medications Medications (Trade) Dose Ordered Sig/Osle Route PRN Reason Start Time Stop Time Status Last Admin Dose Admin Acetaminophen (Tylenol) 500 mg Q4H PRN ORAL Mild Pain/Temp > 100.5 06/24/17 05:45 07/24/17 05:44 06/25/17 16:06 Acetaminophen/ Hydrocodone Bitart ([place] 5/325) 1 tab Q4H PRN ORAL Moderate Pain (Pain Scale 4-6) 06/24/17 05:45 07/01/17 05:44 Albuterol/ Ipratropium (Albuterol/ Ipratropium) 3 ml Q4HRT HHN 06/24/17 19:00 06/29/17 18:59 06/29/17 08:56 Beclomethasone Dipropionate (Qvar 80) 1 puff BIDRT INH 06/29/17 13:00 07/29/17 12:59 Dextrose (Dextrose 50%) STAT PRN IV Hypoglycemia 06/24/17 05:45 07/24/17 05:44 Docusate Sodium (Colace) 100 mg DAILY ORAL 06/24/17 09:00 07/24/17 08:59 06/29/17 08:26 Gabapentin (Neurontin) 300 mg TID@0900,1500,2100 ORAL 06/24/17 09:00 07/24/17 08:59 06/29/17 08:25 Heparin Sodium (Porcine) (Heparin 5000 units/ml) 5,000 units EVERY 12 HOURS SUBQ 06/24/17 21:00 07/24/17 20:59 06/29/17 08:28 Irbesartan (Avapro) 150 mg DAILY ORAL 06/25/17 09:00 07/25/17 08:59 06/29/17 08:26 Metoprolol Tartrate (Lopressor) 12.5 mg EVERY 12 HOURS ORAL 06/24/17 09:00 07/24/17 08:59 06/29/17 08:25 Trimethoprim/ Sulfamethoxazole (Bactrim-DS) 1 ea TWICE A DAY ORAL 06/29/17 12:00 07/02/17 11:59 KODAK ANGELES Jun 29, 2017 12:25
[2017-06-29] MEDS ORDERED: QVAR 80mcg Inh - 8.7gm INH SCH (13:00)
[2017-06-29] MEDS ORDERED: Tubing IV Secondary IV ONE (15:17)
--- NOTE | 2017-06-30 22:16 | Discharge Summary ---
Discharge Summary Hospital Course Date of Admission Jun 24, 2017 at 00:46 Date of Discharge Jun 29, 2017 at 15:18 Admitting Diagnosis SEPSIS,RT ARM CELLULITIS [facility] Vikas Mcdaniel is a 87 year old female who was admitted on Jun 24, 2017 at 00:46 for Sepsis,Right Arm Cellulitis Hospital Course dc summary #[id number] Discharge Condition Upon Discharge: stable Discharge Disposition Patient was discharged to SNF/Subacute Facility(03) Discharge Diagnoses: Discharge Instructions Discharge Instructions Special Instructions I have been assigned to complete a D/C Summary on this account. I was not involved in the patient management Delilah Acosta NP (Vanchtein) Jun 30, 2017 22:16
--- NOTE | 2017-07-01 08:00 | Discharge Summary 2 SIG ---
DATE OF ADMISSION: 06/24/2017 DATE OF DISCHARGE: 06/29/2017 REASON FOR ADMISSION: 87-year-old female with past medical history of ARDS, congestive heart failure, bronchospastic lung disease, hypertension, nonweightbearing status, rheumatoid arthritis, status post kyphoplasty, and peripheral neuropathy, presented from the senior living facility with right upper extremity swelling and redness. The patient has a Venous duplex scan which was negative for DVT. However, there was a concern about cellulitis. The patient was admitted for right upper extremity cellulitis and possible UTI. HOSPITAL COURSE: The patient was admitted. The patient was started on empiric antibiotics. Skin care was provided. Supplemental oxygen was provided as needed to keep pulse oximetry above 92%. Pulmonary toilet with bronchodilator therapy was provided. Volume status and cardiorenal parameters were closely monitored. A baseline cardiovascular regimen was continued. DVT prophylaxis was provided. Blood culture revealed Staph coagulase-negative. ID consult was requested. Per ID, blood culture likely contaminant. Continue antibiotics for cellulitis. Urine culture revealed mixed gram-positive organism. Wound care nurse had seen the patient and advised on the skin care. Skin care was provided as per wound nurse recommendations. The patient developed acute bronchospasm and subsequently was started on IV steroids. Pulmonary toilet with bronchodilator therapy was provided. Followup chest x-ray revealed no acute abnormality. As the patient clinically improved, intravenous steroids were tapered down. Nutritional consult was requested for protein- calorie malnutrition. Per molder sweep, the patient had moderate nutritional risk. Dietary recommendation were implemented. DVT prophylaxis was provided. Patient was working with physical therapist. The patient was stable for discharge. FINAL DIAGNOSES: 1. Right upper extremity cellulitis. 2. Rheumatoid arthritis with immobility. 3. Acute bronchospasm. 4. Protein-calorie malnutrition. 5. History of congestive heart failure. 6. Hypertension. DISCHARGE MEDICATIONS: List of medication was sent to the admitting facility. DISCHARGE INSTRUCTIONS: The patient was discharged to senior living facility. Follow up with medical doctor at the facility. Adam Cifuentes M.D. I have been assigned to dictate discharge summary on this account and I was not involved in the patient's management. Delilah Acosta N.P. (Vanchtein) DR: EMMA JOB#: [id number] CC: ALEJA
--- NOTE | 2017-07-02 11:01 | Diagnostic Imaging Report ---
APPROVED REPORT CPT Code: 03362 Present Symptoms Upper Extremity Pain: Right RIGHT UPPER EXTREMITY: Venous imaging reveals patency of the internal jugular, subclavian, axillary and brachial veins. The cephalic and basilic veins are also patent. Doppler indicates normal spontaneous flow within these venous segments.
== END 2017-06-29 15:18 | DRG 383 ==
LOC: EDBD 22:49 → EMR 23:11 → 2E 06-24 00:46 → EDBEDREQ 06-24 01:55
DX: L03.113 Cellulitis of right upper limb (principal); E44.0 Moderate protein-calorie malnutrition; I50.9 Heart failure, unspecified; G62.9 Polyneuropathy, unspecified; N39.0 Urinary tract infection, site not specified; M06.9 Rheumatoid arthritis, unspecified; J98.01 Acute bronchospasm; I10 Essential (primary) hypertension
CPT/HCPCS: 36415; 71010; 80053; 80202; 81003; 82550; 82553; 83605; 83735; 83880; 84484; 85007; 85025; 85610; 85730; 87040; 87081; 87086; 87181; 93971; 94640; 94664; 94760; 99285; J7620; J8499

== ENCOUNTER 2017-08-21 20:25 | Inpatient (IN) | payer OTHER ==
[~2017-08-21] VITALS: Ht 170.2 cm; Wt 86.6 kg
[~2017-08-21 20:25] MED LIST: ALBUTEROL SULF8.5 GM INH; DIOVAN80 MG ORAL; DIPHENHYDRAMINE25 M1 ORAL; DOCUSATE SODIU100 MG ORAL; DULCOLAX10 MG RC; DULERA 100 MCG/13 GM INH; FLEET ENEMA133 ML RECTAL; GABAPENTIN300 MG ORAL; METOPROLOL TART25 MG ORAL; MOM30 ML ORAL; NORCO 5-325 TA1 EAC1 ORAL; TYLENOL EXTRA500 MG ORAL; VITAMIN C500 M1 ORAL
[2017-08-21 20:35] VITALS: BP 156/72
[2017-08-21] MEDS ORDERED: Solu-MEDROL 125mg Inj IVP ONE (21:00)
[2017-08-21 21:02] LABS: BASOPHILS % (AUTO) 1.8 % (0.0-2.0); EOSINOPHILS % (AUTO) 16.8 % (0.0-3.0); HEMATOCRIT 34.7 % (37.0-47.0); HEMOGLOBIN 11.6 G/DL (12.0-16.0); LYMPHOCYTES % (AUTO) 19.9 % (20.0-45.0); MEAN CORPUSCULAR VOLUME 87 FL (80-99); NEUTROPHILS % (AUTO) 50.6 % (45.0-75.0); PLATELET COUNT 296 K/UL (150-450); RED BLOOD COUNT 3.99 M/UL (4.20-5.40); RED CELL DISTRIBUTION WIDTH 15.8 % (11.6-14.8); WHITE BLOOD COUNT 9.2 K/UL (4.8-10.8)
[2017-08-21 21:18] LABS: ANION GAP 3 mmol/L (5-15); BLOOD UREA NITROGEN 11 mg/dL (7-18); CALCIUM 9.3 MG/DL (8.5-10.1); CARBON DIOXIDE 31 MMOL/L (21-32); CHLORIDE 92 MMOL/L (98-107); CREATININE 0.6 MG/DL (0.55-1.30); SODIUM 126 MMOL/L (136-145)
[2017-08-21] MEDS: Ipratropium 0.02% Inh Soln 2.5ml UD HHN SCH ×3 (21:25→21:59)
[2017-08-21] MEDS: Albuterol ud Inhalation HHN SCH ×3 (21:26→22:00)
[2017-08-21 21:30] LABS: ALANINE AMINOTRANSFERASE 13 U/L (12-78); ALBUMIN 2.7 G/DL (3.4-5.0); ALBUMIN/GLOBULIN RATIO 0.5 (1.0-2.7); ALKALINE PHOSPHATASE 107 U/L (46-116); ASPARTATE AMINO TRANSFERASE 21 U/L (15-37); BILIRUBIN,TOTAL 0.4 MG/DL (0.2-1.0)
--- NOTE | 2017-08-21 21:34 | Emergency Room Report ---
History of Present Illness General Chief Complaint: Dyspnea/Respdistress Source: Patient, Medical Record Present Illness HPI 87-year-old female, coming from longterm, poor historian, history of hypertension, heart failure, presenting with respiratory distress, cough. Patient is poor historian, noted to be wheezing, denies any history of asthma, but states that she was using oxygen and having a nebulizer treatment. No other history is able to be obtained. However patient is currently denying any abdominal pain chest pain Allergies: Coded Allergies: No Known Allergies (Unverified , 06/23/17) Patient History Past Medical History: see triage record Past Surgical History: none Pertinent Family History: none Now: No Reviewed Nursing Documentation: PMH: Agreed, PSxH: Agreed Nursing Documentation-PMH Hx Cardiac Problems: Yes - heart failure Hx Hypertension: Yes Hx Cancer: No Review of Systems All Other Systems: limited Physical Exam Vital Signs Date Time Temp Pulse Resp B/P (MAP) Pulse Ox O2 Delivery O2 Flow Rate FiO2 08/21/17 20:20 88 20 156/72 100 Non-Rebreather 15.0 08/21/17 21:17 21 Sp02 EP Interpretation: abnormal General Appearance: alert, mild distress, Chronically Ill Head: normocephalic, atraumatic Eyes: bilateral eye normal inspection, bilateral eye PERRL, bilateral eye EOMI ENT: normal ENT inspection, normal pharynx, normal voice, moist mucus membranes Neck: normal inspection, full range of motion, supple Respiratory: respiratory distress, speaking full sentences, wheezing Cardiovascular #1: normal inspection, regular rate, rhythm, normal capillary refill Cardiovascular #2: 2+ radial (R), 2+ radial (L) Gastrointestinal: normal inspection, non tender, soft, non-distended, no guarding Musculoskeletal: normal inspection, back normal, normal range of motion, non- tender Neurologic: other - alert, ff commands Psychiatric: other - dementia Skin: normal inspection, normal color, no rash, warm/dry, well hydrated, normal turgor Procedures Critical Care Time Critical Care Time 40 minutes of CC time 87-year-old female, respiratory distress VS: Tachypnea, hypoxic PLAN: IV access, labs, lactate, troponin, Blood/Urine Cx, Abx, IVF Anticipate admission to Tele vs. [facility] CC time also includes review of labs, review of EMR, discussion with family and paperwork from [facility], d/w hospitalist CC could include dosing of pressors, additional Abx CC time does not include procedures Medical Decision Making Diagnostic Impression: Primary Impression: Respiratory distress Additional Impressions: Wheezing Hyponatremia ER Course 87-year-old female p/w SOB DDX: Asthma exacerbation, pneumonia, upper respiratory infection/viral syndrome, ACS , CHF Plan: Labs, Combivent nebulizer treatment x 3, steroids, EKG, CXR Consider BiPAP ER Course: Patient's respiratory status has been closely monitored in the ED. Patient has been treated with combivent x 3, steroids. continues to have resp distress, placed on BIPAP Disposition: Patient will be admitted to [facility] D/W hospitalist Dr Cifuentes Please note that this Emergency Department Report was dictated using [employer] press clipping technology software, occasionally this can lead to erroneous entry secondary to interpretation by the dictation equipment. EKG Diagnostic Results EP Interpretation: Yes Rate: normal Rhythm: NSR ST Segments: T-wave inversion V2 ASA given to patient: No Rhythm Strip EP Interpretation: Yes Rate: 85 Rhythm: NSR, no PVCs, no ectopy Chest X-ray CXR: Ordered: Yes 1 view Indication: SOB EP interpretation: Yes Interpretation: Cardiomegaly, cannot fully evaluate left lung base, mild pulmonary vascular congestion Impression: Cardiomegaly Electronically signed by Chelita Kim MD Laboratory Tests Test 08/21/17 20:40 White Blood Count 9.2 K/UL (4.8-10.8) Red Blood Count 3.99 M/UL (4.20-5.40) L Hemoglobin 11.6 G/DL (12.0-16.0) L Hematocrit 34.7 % (37.0-47.0) L Mean Corpuscular Volume 87 FL (80-99) Mean Corpuscular Hemoglobin 29.1 PG (27.0-31.0) Mean Corpuscular Hemoglobin Concent 33.4 G/DL (32.0-36.0) Red Cell Distribution Width 15.8 % (11.6-14.8) H Platelet Count 296 K/UL (150-450) Mean Platelet Volume 5.7 FL (6.5-10.1) L Neutrophils (%) (Auto) 50.6 % (45.0-75.0) Lymphocytes (%) (Auto) 19.9 % (20.0-45.0) L Monocytes (%) (Auto) 11.0 % (1.0-10.0) H Eosinophils (%) (Auto) 16.8 % (0.0-3.0) H Basophils (%) (Auto) 1.8 % (0.0-2.0) Sodium Level 126 MMOL/L (136-145) L Potassium Level 5.0 MMOL/L (3.5-5.1) Chloride Level 92 MMOL/L (98-107) L Carbon Dioxide Level 31 MMOL/L (21-32) Anion Gap 3 mmol/L (5-15) L Blood Urea Nitrogen 11 mg/dL (7-18) Creatinine 0.6 MG/DL (0.55-1.30) Estimate Glomerular Filtration Rate mL/min (>60) Glucose Level 118 MG/DL (74-106) H Lactic Acid Level 0.70 mmol/L (0.66-2.22) Calcium Level 9.3 MG/DL (8.5-10.1) Total Bilirubin 0.4 MG/DL (0.2-1.0) Aspartate Amino Transferase (AST) 21 U/L (15-37) Alanine Aminotransferase (ALT) 13 U/L (12-78) Alkaline Phosphatase 107 U/L (46-116) Troponin I 0.000 ng/mL (0.000-0.056) Pro-B-Type Natriuretic Peptide 138 pg/mL (0-125) H Total Protein 8.3 G/DL (6.4-8.2) H Albumin 2.7 G/DL (3.4-5.0) L Globulin 5.6 g/dL Albumin/Globulin Ratio 0.5 (1.0-2.7) L Microbiology Date/Time Source Procedure Growth Status 08/21/17 20:51 Nasal Nares Influenza Types A,B Antigen (EDA) - Final Complete Last Vital Signs Date Time Temp Pulse Resp B/P (MAP) Pulse Ox O2 Delivery O2 Flow Rate FiO2 08/21/17 21:17 88 20 Room Air 21 08/21/17 20:20 156/72 100 15.0 Chelita Kim M.D. Aug 21, 2017 21:34
[2017-08-21 22:27] VITALS: BP 98/36
[2017-08-21 23:23] VITALS: BP 107/54
[2017-08-21] MEDS ORDERED: Milk of Magnesia 30ml Ud ORAL PRN (23:30)
[2017-08-21 23:49] LABS: APPEARANCE,URINE CLEAR; BILIRUBIN, URINE NEGATIVE (NEGATIVE); COLOR,URINE PALE YELLOW; GLUCOSE, URINE (UA) NEGATIVE (NEGATIVE); KETONES,URINE NEGATIVE (NEGATIVE); LEUKOCYTE ESTERASE ,URINE NEGATIVE (NEGATIVE); NITRITE,URINE NEGATIVE (NEGATIVE); PH,URINE 6 (4.5-8.0); PROTEIN,URINE NEGATIVE (NEGATIVE); UROBILINOGEN,URINE NORMAL MG/DL (0.0-1.0)
[2017-08-21] MEDS ORDERED: HEPARIN SO5000 UNIT2 SUBQ (23:49)
[2017-08-21] MEDS ORDERED: AVAPRO150 MG ORAL (23:49)
[2017-08-22] MEDS: Vancomycin 1.5 GM/D5W 250ML IVPB SCH (01:39)
[2017-08-22] MEDS: Albuterol/Ipratropium 3ml neb HHN SCH ×5 (03:22→20:24)
[2017-08-22 04:00] VITALS: BP 111/60
[2017-08-22 04:36] LABS: HEMATOCRIT 32.3 % (37.0-47.0); HEMOGLOBIN 10.6 G/DL (12.0-16.0); MEAN CORPUSCULAR VOLUME 88 FL (80-99); PLATELET COUNT 253 K/UL (150-450); RED BLOOD COUNT 3.66 M/UL (4.20-5.40); RED CELL DISTRIBUTION WIDTH 15.8 % (11.6-14.8); WHITE BLOOD COUNT 7.8 K/UL (4.8-10.8)
[2017-08-22 06:04] LABS: ALANINE AMINOTRANSFERASE 8 U/L (12-78); ALBUMIN 2.4 G/DL (3.4-5.0); ALBUMIN/GLOBULIN RATIO 0.5 (1.0-2.7); ALKALINE PHOSPHATASE 95 U/L (46-116); ANION GAP 2 mmol/L (5-15); ASPARTATE AMINO TRANSFERASE 14 U/L (15-37); BILIRUBIN,TOTAL 0.3 MG/DL (0.2-1.0); BLOOD UREA NITROGEN 11 mg/dL (7-18); CALCIUM 8.6 MG/DL (8.5-10.1); CARBON DIOXIDE 29 MMOL/L (21-32); CHLORIDE 95 MMOL/L (98-107); CREATININE 0.7 MG/DL (0.55-1.30); SODIUM 126 MMOL/L (136-145)
[2017-08-22 08:00] VITALS: BP 90/59
[2017-08-22] MEDS ORDERED: Cefepime HCl 1 GM in D5W 55 ML IVPB SCH (09:00)
[2017-08-22] MEDS: Heparin 5000 units/ml inj SUBQ SCH ×2 (09:25→21:35)
--- NOTE | 2017-08-22 09:38 | Diagnostic Imaging Report ---
Indication: Shortness of breath Technique: One view of the chest Comparison: 06/28/2017 Findings: Heart is borderline enlarged. There is borderline interstitial congestion change. No focal airspace consolidation. Pleural spaces are clear The aorta is tortuous and calcified and ectatic. There is evidence of prior L1 vertebral augmentation procedure Impression: Borderline cardiomegaly and interstitial congestive change Other findings as noted
[2017-08-22 12:00] VITALS: BP 111/56
--- NOTE | 2017-08-22 15:56 | Cardiology Report ---
APPROVED REPORT EKG Measurement Heart [id number] Normal sinus rhythm RBBB Abnormal ECG
[2017-08-22 16:00] VITALS: BP 115/58
[2017-08-22 20:00] VITALS: BP 115/62
[2017-08-22] MEDS: Cefepime HCl 1 GM in NS 55 ML IVPB SCH (21:32)
[2017-08-22] MEDS: Gabapentin 300 MG/6 ML Soln ORAL SCH (21:45)
[2017-08-22] MEDS: Solu-MEDROL 40mg Inj IVP SCH (22:51)
[2017-08-23] VITALS: BP 130/64
[2017-08-23] MEDS: Vancomycin 1.5 GM/D5W 250ML IVPB SCH (00:38)
[2017-08-23] MEDS: Albuterol/Ipratropium 3ml neb HHN SCH ×7 (03:36→23:07)
[2017-08-23 04:00] VITALS: BP 142/68
[2017-08-23 04:40] LABS: HEMATOCRIT 32.2 % (37.0-47.0); HEMOGLOBIN 10.7 G/DL (12.0-16.0); MEAN CORPUSCULAR VOLUME 87 FL (80-99); PLATELET COUNT 289 K/UL (150-450); RED BLOOD COUNT 3.68 M/UL (4.20-5.40); RED CELL DISTRIBUTION WIDTH 15.6 % (11.6-14.8); WHITE BLOOD COUNT 8.5 K/UL (4.8-10.8)
[2017-08-23 05:15] LABS: ALANINE AMINOTRANSFERASE 10 U/L (12-78); ALBUMIN 2.6 G/DL (3.4-5.0); ALBUMIN/GLOBULIN RATIO 0.5 (1.0-2.7); ALKALINE PHOSPHATASE 91 U/L (46-116); ANION GAP 4 mmol/L (5-15); ASPARTATE AMINO TRANSFERASE 13 U/L (15-37); BILIRUBIN,TOTAL 0.3 MG/DL (0.2-1.0); BLOOD UREA NITROGEN 14 mg/dL (7-18); CALCIUM 8.5 MG/DL (8.5-10.1); CARBON DIOXIDE 27 MMOL/L (21-32); CHLORIDE 100 MMOL/L (98-107); CREATININE 0.6 MG/DL (0.55-1.30); POTASSIUM 4.7 MMOL/L (3.5-5.1); SODIUM 131 MMOL/L (136-145)
[2017-08-23 08:00] VITALS: BP 135/72
[2017-08-23] MEDS: Solu-MEDROL 40mg Inj IVP SCH (08:45)
[2017-08-23] MEDS: Losartan 50mg tab ORAL SCH (08:48)
[2017-08-23] MEDS: Cefepime HCl 1 GM in NS 55 ML IVPB SCH ×2 (08:49→20:48)
[2017-08-23] MEDS: Gabapentin 300 MG/6 ML Soln ORAL SCH ×3 (08:50→17:57)
[2017-08-23] MEDS ORDERED: Metoprolol Tartrate 12.5mg TAB ORAL SCH (09:00)
[2017-08-23] MEDS ORDERED: Heparin 5000 units/ml inj SUBQ SCH (09:00)
[2017-08-23] MEDS: Heparin 5000 units/ml inj SUBQ SCH ×2 (09:00→20:50)
--- NOTE | 2017-08-23 11:15 | Diagnostic Imaging Report ---
Indication: Chest pain Technique: One view of the chest Comparison: August 21, 2017 Findings: Body habitus limits evaluation. Lungs and pleural spaces are probably clear; previously question interstitial congestion not evident currently. The heart size is upper limits of normal. The aorta is tortuous and calcified. There is evidence of prior vertebral augmentation Impression: No definite acute process
[2017-08-23 12:00] VITALS: BP 151/87
[2017-08-23 16:00] VITALS: BP 142/58
[2017-08-23] MEDS ORDERED: Tubing IV Secondary IV ONE (18:20)
[2017-08-23 20:00] VITALS: BP 134/68
--- NOTE | 2017-08-23 23:05 | History and Physical Report ---
DATE OF ADMISSION: 08/21/2017 REASON FOR ADMISSION: Shortness of breath. HISTORY OF PRESENT ILLNESS: This is a 87-year-old female, who lives in a senior care facility. She developed acute respiratory distress with wheezing and was transferred to the emergency room for assessment. She was noted to be hypoxic with acute bronchospasm and was given inhaled bronchodilators and intravenous steroids with improvement. PAST MEDICAL HISTORY: Rheumatoid arthritis, peripheral neuropathy, cerebrovascular disease with history of cerebrovascular accident, hypertension, type 2 diabetes mellitus, diet controlled, and bronchospastic lung disease. MEDICATIONS: Reviewed and reconciled. ALLERGIES: None. FAMILY HISTORY: Noncontributory. SOCIAL HISTORY: No record of smoking, alcohol, or substance abuse. REVIEW OF SYSTEMS: Cannot be reliably obtained from the patient. PHYSICAL EXAMINATION: VITAL SIGNS: Blood pressure 156/72, pulse 88, respiratory rate 20, afebrile. GENERAL: Ill-appearing. HEENT: Normocephalic, atraumatic. Conjunctivae pink. Oropharynx clear. No thrush. NECK: Supple. There is some accessory muscle use. LUNGS: With coarse breath sounds. Expiratory wheezes. CARDIAC: Regular rhythm and rate. Normal S1 and S2 with a fourth heart sound. ABDOMEN: Soft and nontender. EXTREMITIES: With trace edema. Contracture of the right upper extremities noted and deformities of the small joints of the hands and feet. LABORATORY AND DIAGNOSTIC DATA: Chest x-ray reveals infiltrates versus edema bilaterally. White count 9.2 and hemoglobin 11.6. Sodium 126, potassium 5, chloride 93, bicarbonate 31, BUN 11, creatinine 0.6 and glucose 118. Albumin 2.7. IMPRESSION: 1. Acute bronchospasm. 2. Probable bronchopneumonia. 3. Moderate protein-calorie malnutrition. 4. Hyponatremia. 5. Hypochloremia. 6. Rheumatoid arthritis. 7. Peripheral neuropathy. 8. Cerebrovascular disease. 9. Hypertensive heart disease. PLAN: 1. No beta-blockers. 2. Maintain adequate saline hydration. 3. Inhaled bronchodilators and intravenous steroids as needed. 4. Empiric antibiotics. 5. DVT and stress ulcer prophylaxis. Adam Cifuentes M.D. DR: JOLANTA JOB#: [id number] CC:
--- NOTE | 2017-08-23 23:05 | Progress Note ---
DATE: 08/22/2017 INTERNAL MEDICINE PROGRESS NOTE SUBJECTIVE: The patient is awake and alert. No excess congestion. No shortness of breath. OBJECTIVE: ` Blood pressure is 115/58, pulse 94, respiratory rate 20, and oxygen saturation 95% to 100% on 2 L. LUNGS: Few rhonchi. No wheezing. HEART: Regular rhythm and rate. Normal S1 and S2. ABDOMEN: Soft. EXTREMITIES: Trace edema. LABORATORY DATA: White count is 7.8 and hemoglobin 10.6. TSH is 0.38. Albumin is 2.4. Sodium is 126, potassium 5, bicarbonate 29, BUN 11, and creatinine 0.7. IMPRESSION: 1. Acute bronchospasm. 2. Healthcare-acquired pneumonia. 3. Hyponatremia. 4. Hypochloremia. 5. Severe protein-calorie malnutrition. 6. Anemia of chronic disease. 7. History of hypertensive heart disease with history of congestive heart failure. 8. Peripheral neuropathy. 9. Cerebrovascular disease with prior cerebrovascular accident. PLAN: 1. Antimicrobials. 2. Respiratory hygiene. 3. Saline hydration. 4. Follow up urine lytes. 5. Inhaled bronchodilators. 6. Avoid steroids for now. 7. Monitor volume status and cardiorenal parameters closely. Adam Cifuentes M.D. DR: Amanda JOB#: [id number] CC:
[2017-08-24] VITALS: BP 140/73
[2017-08-24] MEDS: Albuterol/Ipratropium 3ml neb HHN SCH ×4 (03:32→14:10)
[2017-08-24 04:00] VITALS: BP 146/78
--- NOTE | 2017-08-24 04:15 | Progress Note ---
DATE: 08/23/2017 CARDIOLOGY AND INTERNAL MEDICINE PROGRESS NOTE SUBJECTIVE: The patient without shortness of breath, congestion, or chest pain. Repeat chest x-ray today reveals no acute process. OBJECTIVE: VITAL SIGNS: Afebrile, blood pressure 142/58, pulse rate 61, and respiratory rate 20. Sinus rhythm. LUNGS: Diminished breath sounds. No wheezing. HEART: Regular rhythm and rate. Normal S1 and S2. ABDOMEN: Soft. EXTREMITIES: No edema. LABORATORY DATA: Influenza negative. IMPRESSION: 1. Acute bronchospasm. 2. Asthma. 3. Rheumatoid arthritis. 4. Cerebrovascular disease. 5. No signs of acute pulmonary infection. PLAN: 1. Discontinue antibiotics. 2. Taper steroids. 3. Inhaled bronchodilators. 4. DVT prophylaxis. 5. Discharge planning. Adam Cifuentes M.D. DR: Amanda JOB#: [id number] CC:
[2017-08-24 04:18] LABS: ANION GAP 4 mmol/L (5-15); BLOOD UREA NITROGEN 9 mg/dL (7-18); CALCIUM 8.5 MG/DL (8.5-10.1); CARBON DIOXIDE 28 MMOL/L (21-32); CHLORIDE 104 MMOL/L (98-107); CREATININE 0.6 MG/DL (0.55-1.30); SODIUM 135 MMOL/L (136-145)
[2017-08-24 08:00] VITALS: BP 135/77
[2017-08-24] MEDS: Gabapentin 300 MG/6 ML Soln ORAL SCH ×3 (08:17→17:53)
[2017-08-24] MEDS: Losartan 50mg tab ORAL SCH (08:18)
[2017-08-24] MEDS: Heparin 5000 units/ml inj SUBQ SCH (08:20)
[2017-08-24 12:00] VITALS: BP 145/86
[2017-08-24 16:00] VITALS: BP 152/81
[2017-08-24] MEDS ORDERED: NS 275ml ONE (18:49)
--- NOTE | 2017-08-27 11:30 | Discharge Summary ---
Discharge Summary Hospital Course Date of Admission Aug 21, 2017 at 21:46 Date of Discharge Aug 24, 2017 at 18:50 Admitting Diagnosis sob KARMA Mcdaniel is a 87 year old female who was admitted on Aug 21, 2017 at 21:46 for Shortness Of Breath Hospital Course dc summary #[id number] Discharge Condition Upon Discharge: stable Discharge Disposition Patient was discharged to ICF/ECF (04) Discharge Diagnoses: Discharge Instructions Discharge Instructions Special Instructions I have been assigned to complete a D/C Summary on this account. I was not involved in the patient management Delilah Acosta NP (Vanchtein) Aug 27, 2017 11:30
--- NOTE | 2017-08-28 02:45 | Discharge Summary 2 SIG ---
DATE OF ADMISSION: 08/21/2017 DATE OF DISCHARGE: 08/24/2017 REASON FOR ADMISSION: 87-year-old female with a history of hypertension, congestive heart failure, presented from the residential facility with cough and respiratory distress. The patient was tachypneic, hypoxemic, and dysuric, required placement on the BiPAP. EKG showed normal sinus rhythm with right bundle-branch block. Troponin was negative. No leukocytosis. Sodium -126 and chloride -95. Chest x-ray revealed borderline cardiomegaly and interstitial congestive changes. ProBNP - 138. Influenza screen test was negative. The patient was admitted with diagnosis of acute bronchospasm, probable bronchial pneumonia, hyponatremia, hypochloremia, moderate protein calorie malnutrition, rheumatoid arthritis, peripheral neuropathy, hypertensive heart disease, and cerebrovascular disease. HOSPITAL COURSE: The patient was admitted. The patient was started on the IV steroids and empiric antibiotics. No beta-moises initially due to the acute bronchospasm. The patient was started on IV steroids, which were gradually tapered. DVT and GI prophylaxis provided. Hydration with normal saline provided. Electrolytes and renal parameters were closely monitored. Blood culture negative. Followup chest x-ray revealed no evidence of acute cardiopulmonary disease and antibiotics stopped. Sodium and chloride stabilized with intravenous hydration: sodium from 126 up to 135 and chloride from 95 up to 104. Hyponatremia and hypochloremia were likely secondary to dehydration and resolved with saline hydration. Dietary recommendations were implemented for moderate protein calorie malnutrition. Antihypertensive medication regimen was continued. Hemoglobin and Hematocrit were closely monitored, remained at the baseline, stable. No need for transfusion. Supplemental oxygen and pulmonary toilet provided as needed to keep pulse oximetry above 92%. The patient was short time on BiPAP while in the ER , then downgraded to oxygen via nasal cannula, pulse oximetry stable. Patient was stable for discharge back to residential [facility]. FINAL DIAGNOSES: 1. Acute bronchospasm. 2. Asthma. 3. Hyponatremia. 4. Hyperkalemia, resolved. 5. Moderate protein-calorie malnutrition. 6. Rheumatoid arthritis. 7. Hypertensive heart disease. 8. Peripheral neuropathy. 9. Cerebrovascular disease. 10. Anemia of chronic disease. DISCHARGE MEDICATIONS: List of medication was sent to accepting facility. DISCHARGE INSTRUCTIONS: The patient was discharged to residential facility. FOLLOWUP: Follow up with medical doctor at the facility. Adam Cifuentes M.D. I have been assigned to dictate discharge summary on this account and I was not involved in the patient's management. Delilah HigginsLes kinsey DR: Tata JOB#: [id number] CC: ALEJA
== END 2017-08-24 18:50 | DRG 141 ==
LOC: EDBD 20:25 → EMR 20:52 → 2W 21:46 → EDBEDREQSVC 22:18 → EDBEDREQ 22:18 → EDBEDREQTM 22:18 → EDBEDREQ 22:49
PROC: 5A09357 Assistance with Respiratory Ventilation, Less than 24 Consecutive Hours, Continuous Positive Airway Pressure (ICD-10-PCS; principal; 2017-08-21)
DX: J45.901 Unspecified asthma with (acute) exacerbation (principal); E44.0 Moderate protein-calorie malnutrition; R06.03 Acute respiratory distress; I11.9 Hypertensive heart disease without heart failure; E87.8 Other disorders of electrolyte and fluid balance, not elsewhere classified; E87.1 Hypo-osmolality and hyponatremia; G62.9 Polyneuropathy, unspecified; E11.9 Type 2 diabetes mellitus without complications; E87.5 Hyperkalemia; D63.8 Anemia in other chronic diseases classified elsewhere; M06.9 Rheumatoid arthritis, unspecified; Z86.73 Personal history of transient ischemic attack (TIA), and cerebral infarction without residual deficits; I45.10 Unspecified right bundle-branch block
CPT/HCPCS: 36415; 36600; 71045; 80048; 80053; 80202; 81003; 82803; 83605; 83735; 83880; 83935; 84300; 84443; 84484; 84550; 85007; 85025; 86710; 87040; 87081; 93005; 94640; 94660; 94664; 94760; 99291; J7620